=== PATIENT | female | born 1960 | race Caucasian/White ===

== ENCOUNTER 2020-03-17 09:31 | Inpatient (IN) | payer OTHER ==
[~2020-03-17] VITALS: Ht 162.6 cm; Wt 60.6 kg
[2020-03-17] VITALS (30 sets, daily range): BP systolic 50–129; BP diastolic 20–74
[2020-03-17 10:09] LABS: HEMATOCRIT 40.7 % (37.0-47.0); HEMOGLOBIN 11.9 gm/dL (12.0-15.0); MCH 29.7 pg (26.0-34.0); MCHC 29.2 g/dL (28.0-37.0); MCV 101.7 fL (80.0-100.0); PLATELET COUNT 284 thou/uL (150-400); RDW 21.6 % (10.5-14.5); WBC 22.2 thou/uL (4.0-11.0)
[2020-03-17] MEDS ORDERED: DOLOGEN CAPLET1 EACH PO (10:22)
[2020-03-17] MEDS ORDERED: NORVASC5 M1 PO (10:22)
[2020-03-17] MEDS ORDERED: VITAMIN C500 M2 PO (10:24)
[2020-03-17] MEDS ORDERED: ASA81BEC PO (10:24)
[2020-03-17] MEDS ORDERED: ZYRTEC10 M5 PO (10:25)
[2020-03-17] MEDS ORDERED: CELLCEPT500 MG PO (10:25)
[2020-03-17] MEDS ORDERED: THERA-D100 MCG PO (10:26)
[2020-03-17 10:28] LABS: APTT 42.7 Seconds (24.5-32.8); INR 1.6; PROTIME 16.3 Seconds (9.3-11.4)
[2020-03-17] MEDS ORDERED: CLOBETASOL PROP15 GM TOP (10:28)
[2020-03-17] MEDS ORDERED: ARTIFICIAL TEA1 EAC1 EA. EYE (10:29)
[2020-03-17 10:30] LABS: ALBUMIN 2.4 g/dL (3.4-5.0); CALCIUM 9.7 mg/dL (8.5-10.1); CREATININE 2.4 mg/dL (0.6-1.0); TOTAL BILIRUBIN 1.1 mg/dL (0.2-1.0); TOTAL PROTEIN 6.4 g/dL (6.4-8.2)
[2020-03-17 10:31] LABS: URINE BILIRUBIN NEGATIVE (Negative); URINE BLOOD 1+ (Negative); URINE CLARITY CLEAR; URINE COLOR YELLOW; URINE GLUCOSE-RANDOM* NEGATIVE (Negative); URINE KETONES TRACE (Negative); URINE LEUKOCYTES-REFLEX NEGATIVE (Negative); URINE NITRITE-REFLEX NEGATIVE (Negative); URINE PROTEIN (DIPSTICK) 1+ (Negative); URINE UROBILINOGEN 0.2 E.U./dl (0.2-1.0)
[2020-03-17 10:31] LABS: POTASSIUM 4.3 mmol/L (3.5-5.1)
[2020-03-17] MEDS ORDERED: DULOXETINE HCL60 MG PO (10:32)
[2020-03-17] MEDS ORDERED: ELIQUIS2.5 MG PO (10:32)
[2020-03-17] MEDS ORDERED: ERYTHROMYCIN E3.5 G2 EA. EYE (10:33)
[2020-03-17] MEDS ORDERED: FUROSEMIDE 40 M40 MG PO (10:34)
[2020-03-17] MEDS ORDERED: IRON325 M1 PO (10:34)
[2020-03-17] MEDS ORDERED: ACIDOPHILUS1 EAC3 PO (10:35)
[2020-03-17] MEDS ORDERED: LEVOXYL75 MCG PO (10:35)
[2020-03-17] MEDS ORDERED: MELATONIN3 M1 PO (10:36)
[2020-03-17] MEDS ORDERED: MEPRON750 MG/5 M PO (10:36)
[2020-03-17] MEDS ORDERED: MICAFUNGIN100 MG IV (10:37)
[2020-03-17] MEDS ORDERED: SUPER THERAVIT1 EACH PO (10:38)
[2020-03-17] MEDS ORDERED: OXYCONTIN20 M1 PO (10:39)
[2020-03-17] MEDS ORDERED: KLOR-CON M2020 MEQ PO (10:41)
[2020-03-17] MEDS ORDERED: RAYOS5 MG PO (10:41)
[2020-03-17] MEDS ORDERED: PROTONIX40 M2 PO (10:42)
[2020-03-17] MEDS ORDERED: RESTASIS1 EACH OPHTHALMIC (10:42)
[2020-03-17] MEDS ORDERED: REVATIO20 MG PO (10:42)
[2020-03-17] MEDS ORDERED: SPIRONOLACTONE50 MG PO (10:43)
[2020-03-17 10:45] LABS: CRYSTALS None Seen /LPF (None Seen); MUCUS 0-3 Light strn/LPF (None Seen); SQUAMOUS 4-10 Moderate /LPF (0-3)
[2020-03-17 10:46] LABS: BACTERIA-REFLEX 1-9 Few /HPF (None Seen); URINE RBC 0-2 Rare /HPF (0-2); URINE WBC-REFLEX 0-5 Rare /HPF (0-5)
[2020-03-17] MEDS ORDERED: URSODIOL250 MG PO (10:46)
[2020-03-17 10:48] LABS: HYALINE CASTS 0-3 Few /LPF (None Seen)
[2020-03-17] MEDS ORDERED: URSO TAB 250 M250 MG PO (10:48)
[2020-03-17] MEDS ORDERED: ZERBAXA 1-0.51.5 GM IV (10:52)
[2020-03-17] MEDS ORDERED: ZINC SULFATE220 MG PO (10:52)
[2020-03-17 11:16] LABS: ABSOLUTE NEUTROPHILS 20.9 thou/uL (1.4-8.2); NUCLEATED RBCS 1 /100WBC
[2020-03-17 11:17] LABS: ANISOCYTOSIS 2+
--- NOTE | 2020-03-17 12:41 | EKG ---
[facility] [place] [address] ELECTROCARDIOGRAM REPORT Name: FER VINSON Room #: [facility]#: [id number] Admission: 03/17/20 Attend Phys: Discharge: Date of : 56 Report #: [id number] THIS REPORT FOR: cc: Miguel Dubon James D. DO Santiago, Patrick MD [facility] ~ THIS REPORT FOR: //name// [facility] ED Test Date: 2020-03-17 Test Time: 10:08:45 Pat Name: FER VINSON Department: Room: Gender: F Car Usher: tu : 1960 Requested By: Kel Tyler Order Number: [id number] MD: Chilo Esquivel Measurements Intervals [place] Rate: 109 P: 8 NE: 145 QRS: 52 QRSD: 89 T: -15 QT: 349 QTc: 471 Interpretive Statements Sinus tachycardia Consider right atrial enlargement Borderline repol abnrm, inferolateral leads No previous ECG available for comparison Electronically Signed On 03-17-2020 12:41:22 CDT by Chilo Esquivel [email or web address] <ELECTRONICALLY SIGNED> By: Chilo Esquivel MD, FACC 03/17/20 1241 07 Chilo Esquivel MD, FAC /EPI
[2020-03-17 13:21] LABS: BE(vivo) -14.5 mmol/L (-2 to +3); HCO3 12.5 mmol/L (22.0-26.0); PCO2 33.1 mmHg (35.0-45.0); sO2 91.6 % (92.0-98.0)
[2020-03-17 13:22] LABS: pH 7.194 (7.360-7.450)
--- NOTE | 2020-03-17 17:29 | NUR ---
PATIENT ADMITTED TO ICU RM 236 A 1530, DROWSY BUT AROUSABLE AND WHEN AWAKE MUMBLING INCOMPREHENSIBLE WORDS. ON BIPAP AND RESTLESS AND ATTEMPTING TO PULL BIPAP OFF. VITALS STABLE AND DR. WEINSTEIN PAGED RE: PATIENT ARRIVAL TO ICU. ORDERS ACKNOWLEDGED AND CONSULTS CALLED. ADMISSION ASSESSMENT COMPLETED AND SOME HISTORY COMPLETED, PATIENT UNABLE TO PROVIDE MOST HISTORY DUE TO CONFUSION AND BIPAP USE. WOUNDS NOTED AND PICTURES TAKEN. WOUND VAC ON RT HIP/GROIN ALSO NOTED. NO BELONGINGS WITH PATIENT. DR. EWINSTEIN TO CALL PATIENT'S DAUGHTER WITH UPDATED PER PHONE CALL. CARE PLAN ACTIVATED.
--- NOTE | 2020-03-17 20:00 | NUR ---
SPOKE WITH PTS DAUGHTER AND SON AT LENGTH. THEY ARE REFUSINBG THE CONVALESCENT PLASMA AT THIS TIME. PT REMAINS A DNR. WILL CONT TO MONITOR
[2020-03-17 21:04] LABS: BE(vivo) -7.3 mmol/L (-2 to +3); HCO3 19.4 mmol/L (22.0-26.0); PCO2 43.9 mmHg (35.0-45.0); sO2 68.6 % (92.0-98.0)
[2020-03-17 21:05] LABS: PO2 40.7 mmHg (80.0-100.0); pH 7.264 (7.360-7.450)
--- NOTE | 2020-03-17 21:15 | NUR ---
PO2 40 ON ABG'S 100 % FIO2. PHONED TO DR POWER. FAMILY WANTS TO DO COMFORT CARE NO ORDERS AT THI8S TIME
--- NOTE | 2020-03-17 21:45 | NUR ---
PT MADE COMFORT CARE PER FAMILY REQUEST BIPAP REMOVED. FAMILY AT THE WINDOW
--- NOTE | 2020-03-17 22:40 | NUR ---
MORPHINE GTT STARTED PER ORDER PER COMFORT MEASURES.
--- NOTE | 2020-03-17 23:00 | NUR ---
FAMILY AT WINDOW. HEART RATE DROPPING TO 50. HYPOTENSIVE
--- NOTE | 2020-03-17 23:15 | NUR ---
MONITOR SHOWS ASYSTOLE NO BP PULSE NOR RESP PT PEACEFULLY WITH FAMILY AT THE WINDOW OF ICU. SEE REPORT FOR FURTHER INFO.
== END 2020-03-17 23:15 | DRG 871 ==
LOC: ER 09:31 → EROBS 14:08 → ICU 14:08
PROVIDERS: Emergency Medicine; Pediatrics; ADMIT Hospitalist; ATTEND Hospitalist
PROC: 5A09357 Assistance with Respiratory Ventilation, Less than 24 Consecutive Hours, Continuous Positive Airway Pressure (ICD-10-PCS; principal; 2020-03-17)
DX: A41.89 Other specified sepsis (principal); U07.1 COVID-19; J12.89 Other viral pneumonia; J96.01 Acute respiratory failure with hypoxia; E43 Unspecified severe protein-calorie malnutrition; L97.929 Non-pressure chronic ulcer of unspecified part of left lower leg with unspecified severity; L97.919 Non-pressure chronic ulcer of unspecified part of right lower leg with unspecified severity; M00.9 Pyogenic arthritis, unspecified; R65.20 Severe sepsis without septic shock; K74.5 Biliary cirrhosis, unspecified; E16.2 Hypoglycemia, unspecified; Z66 Do not resuscitate; Z68.22 Body mass index [BMI] 22.0-22.9, adult; Z79.01 Long term (current) use of anticoagulants; Z79.899 Other long term (current) drug therapy; Z79.82 Long term (current) use of aspirin; Z88.2 Allergy status to sulfonamides; Z88.8 Allergy status to other drugs, medicaments and biological substances
CPT/HCPCS: 10078